=== PATIENT | female | born 2000 | race Caucasian/White ===

== ENCOUNTER 2018-07-19 10:59 | Outpatient (CLI) | payer MEDICAID ==
[~2018-07-19] VITALS: Ht 157.5 cm; Wt 73.0 kg
[2018-07-19] MEDS ORDERED: PREN1TAB13 PO (11:09)
[2018-07-19 11:10] VITALS: Ht 157.5 cm; Wt 73.0 kg
[2018-07-19 11:19] VITALS: BP 123/79; PULSE 83; RESP 20
--- NOTE | 2018-07-19 16:52 | PN ---
Triage Information Date/Time 07/19/1801/29/1645 Reason for visit: Vag spotting / bleeding Weeks of Gestation 38w5d /Para Diabetes: none Hypertention: none Objective Vital Signs Date Temp Pulse Resp B/P (MAP) Pulse Ox O2 O2 Flow FiO2 Time Delivery Rate 07/19/18 98.7 83 20 123/79 Room Air 11:19 (94) Heart Rate: 140's Heart Rate Comments CAT I Contractions: None Exam / Results/Medications Imaging Results BPP 12/18 DENNISE 13.7 EFW 2885 gm 12.5% Disposition: Discharge Assessment/Plan A IUP 38w5d NIL latent phase P RTH in 3days for f/u RTH prn with routine labor instructions HEYDI JOHNSON MD Jul 19, 2018 16:52
== END 2018-07-19 13:50 | disposition home or self-care (01) ==
LOC: OBT 10:59 → L-D 10:59 → OBT 13:50
PROVIDERS: ATTEND Obstetrics & Gynecology
DX: O46.8X3 Other antepartum hemorrhage, third trimester (principal); Z3A.38 38 weeks gestation of pregnancy
CPT/HCPCS: 76815; 76818; Z7500; G0463

== ENCOUNTER 2018-07-20 06:37 | Inpatient (IN) | payer MEDICAID ==
[~2018-07-20] VITALS: Ht 154.9 cm; Wt 72.0 kg
[~2018-07-20 06:37] MED LIST: PREN1TAB13 PO
[2018-07-20 07:02] VITALS: Ht 154.9 cm; Wt 72.0 kg
[2018-07-20 07:03] VITALS: BP 125/82; PULSE 79
--- NOTE | 2018-07-20 07:26 | TRIAGE ---
OB Triage Datetime Report Generated by CPN: 07/20/2018 07:25 Datetime: 07/20/2018 06:54 Stage of : OB Triage Vaginal Exam Dilatation (cms): 4.0 Effacement (%): 70 Station: -2 Exam By: Jodie Cartagena RN Vaginal Bleeding: Normal Show Cervix, Consistency: Soft Cervix, Position: Anterior Presentation 'A': Cephalic Datetime: 07/20/2018 06:51 Assessment Type: Triage Maternal Assessment Level of Consciousness: Fully Conscious DTR's/Clonus: DTRs 2+; No Clonus Headache: Denies Blurred Vision: No Respiratory Effort: Unlabored; Regular Rhythm; Equal Expansion Breath Sounds, Left: Clear and Equal Breath Sounds, Right: Clear and Equal Nausea/Vomiting: Denies RUQ Epigastric Pain: Denies Lower Extremities Edema: None Degree: None Upper Extremities Edema: None Degree: None Facial Edema: None Fall Risk Assessment History of Falling: (0) No Secondary Diagnosis: (0) No Ambulatory Aid: (0) Bedrest/Nurse Assist IV Therapy: (0) No Gait: (0) Normal/Bedrest/Immobile Mental Status: (0) Oriented to Own Ability Fall Score: 0 Fall Risk Score Definition: No Risk: No action required Datetime: 07/20/2018 06:42 Time of Arrival: 07/20/2018 06:30 EGA: 38.6 Arrived By: Wheelchair Arrived From: Home Chief Complaint: UC's Movement: Present Contractions: Regular Time Contractions Began: 07/20/2018 03:00 Contractions: Q3mins Rupture of Membranes: Denies Vaginal Discharge: Denies Recent Sexual Intercouse: Denies Abdominal Trauma: Not Applicable Time Provider Notified: 07/20/2018 07:10 Provider Notified: Dr Christine Initial Plan: Monitor, SVE Datetime: 07/19/2018 11:15 Maternal Assessment Level of Consciousness: Fully Conscious DTR's/Clonus: DTRs 2+ Headache: Denies Blurred Vision: No Nausea/Vomiting: Denies RUQ Epigastric Pain: Denies Facial Edema: None Labor Evaluation Frequency: 5 at home Pattern: Normal: <= 5 Contractions in 10 Minutes Resting Tone [place]: Relaxed Heart Rate FHR Baseline Rate: 150 Monitor Mode: External US FHR Baseline Changes: No Baseline Change Variability: Moderate 6-25 bpm Accelerations: 10X10 Decelerations: None Category: Category I Pain Assessment Pain Scale: 5 Pain Presence: Intermittent Pain Type: Contraction Pain Location: Abdomen Pain Goal: 5 Vaginal Exam Dilatation (cms): 1.0 Effacement (%): 40 Station: -2 Exam By: becca weiss Membrane Status: Intact Vaginal Bleeding: Normal Show Cervix, Consistency: Firm Cervix, Position: Anterior Datetime: 07/19/2018 11:04 Time of Arrival: 07/19/2018 11:00 EGA: 38.5 Arrived By: Ambulatory Arrived From: Home Chief Complaint: VAG SPOTTING SINCE THIS MORNING Movement: Present Contractions: Regular Time Contractions Began: 07/19/2018 08:00 Contractions: 5 AT HOME Rupture of Membranes: Denies Vaginal Bleeding: Normal Show Vaginal Discharge: Denies Recent Sexual Intercouse: Denies Abdominal Trauma: Not Applicable Patient Complaints: Contractions Provider Notified: HADADIAN Initial Plan: EFM,CALL HADANDI Datetime: 07/19/2018 11:03 Maternal Assessment Level of Consciousness: Fully Conscious DTR's/Clonus: DTRs 2+; No Clonus Headache: Denies Blurred Vision: No Respiratory Effort: Unlabored; Regular Rhythm; Equal Expansion Breath Sounds, Left: Clear and Equal Breath Sounds, Right: Clear and Equal Nausea/Vomiting: Denies RUQ Epigastric Pain: Denies Facial Edema: None Temperature Route: Axillary Fall Risk Assessment History of Falling: (0) No Secondary Diagnosis: (0) No Ambulatory Aid: (0) Bedrest/Nurse Assist IV Therapy: (0) No Gait: (0) Normal/Bedrest/Immobile Mental Status: (0) Oriented to Own Ability Fall Score: 0 Fall Risk Score Definition: No Risk: No action required
[2018-07-20] MEDS ORDERED: OXYTOCIN 30 UNITS/LR 500 ML IV SCH ×2 (07:30)
[2018-07-20] MEDS ORDERED: AMPICILLIN 2 GM/NS (PMX) 100 ML IV ONE (07:30)
[2018-07-20] MEDS ORDERED: BUTORPHANOL 2 MG INJ IV PRN (07:30)
[2018-07-20] MEDS ORDERED: MISOPROSTOL 200 MCG TAB PR PRN ×2 (07:30→13:30)
[2018-07-20] MEDS ORDERED: OXYTOCIN 30 UNITS/LR 500 ML IV PRN ×2 (07:30→13:30)
[2018-07-20] MEDS ORDERED: OXYCODONE/ACETAMINOPHEN (5/325) TAB PO PRN (07:30)
[2018-07-20] MEDS ORDERED: LIDOCAINE 1% (MPF) 30 ML INJ INJ PRN (07:30)
[2018-07-20] MEDS ORDERED: IBUPROFEN 600 MG TAB PO PRN (07:30)
[2018-07-20] MEDS ORDERED: METHYLERGONOVINE 0.2 MG INJ IM PRN ×2 (07:30→13:30)
[2018-07-20] MEDS ORDERED: CARBOPROST 250 MCG INJ IM PRN ×2 (07:30→13:30)
[2018-07-20] MEDS ORDERED: LACTATED RINGER'S 1,000 ML IV SCH (08:08)
[2018-07-20] MEDS ORDERED: CEFAZOLIN 2 GM/50 ML (PMX) 50 ML IVPB ONE (11:00)
[2018-07-20] MEDS ORDERED: MAGNESIUM HYDROXIDE 30ML CUP PO ONE (11:02)
[2018-07-20] MEDS ORDERED: HYDROCODONE/APAP (5/325) TAB PO ONE (11:12)
[2018-07-20] MEDS ORDERED: AMPICILLIN 1 GM/NS (PMX) 50 ML IV SCH (11:30)
--- NOTE | 2018-07-20 11:56 | HP ---
Date/Time of Note Date/Time of Note DATE: 07/20/18 TIME: 11:54 OB - History Hx of Present Free Text/Dictation 17 years old 1 with single intrauterine at 38 weeks and 6 days with a TIFFANY of 07/28/2018 complaining of uterine contractions. She states good movement. She denies nausea, vomiting, shortness of breath, chest pain, headache, visual changes, vaginal bleeding or LOF. Chief Complaint: Uterine contractions Estimated Due Date: Jul 28, 2018 : 1 Care: Good Care Ultrasounds: Normal mid trimester US Obstetrical Complications: None Medical Complications: None Past Family/Social History * Past Medical, Surgical, Family and Obstetric Histories reviewed which are unremarkable Blood Type: O+ GBS Status: Negative OB Admission Exam Vital Signs Vital Signs Vital Signs Date Temp Pulse Resp B/P (MAP) Pulse Ox O2 O2 Flow FiO2 Time Delivery Rate 07/20/18 97.9 79 125/82 Room Air 07:03 (96) Physical Exam HEENT: WNL Heart: Rhythm Normal Lungs: Clear Abdomen: WNL Extremities: Normal Cervical Dilatation: 4cm Effacement: 75% Station: -2 Membranes: Intact Heart Rate: 140's Accelerations: Accelerations Present Decelerations: No Decelerations Varibility: Moderate Contractions on Admission: < 5 Minutes Apart Intensity: Firm Last 72 hours Lab Results CBC & BMP 07/20/18 07:50 OB Assessment/Plan Other plan: 17 years old 1 with single intrauterine at 38 weeks and 6 days in active labor - FHR: No sign of metabolic acidosis- Category I - Continuous EFM, toco - CBC, blood type and screen - Analgesia options with R/B/A discussed in detail with patient - Epidural per patient request - Please see the orders - O+ - GBS: Negative - Obtain records Admission, procedures, expectations, risks and possible complications have been discussed in detail with the patient. Risk of vaginal delivery including but not limited to bleeding, infection, cervical laceration, placental retention, injury to fetus, blood transfusion, blood transfusion related infection, risk of anesthesia, adhesion, cervical laceration, episiotomy/laceration, possible delivery with risk of bleeding, infection, injury to other organs (bowel, bladder, ureter, vessels, nerves), injury to fetus, blood transfusion, blood transfusion related infection, risk of anesthesia, scar and hernia formation, needs for future , removal of uterus or any other indicated surgery discussed with the patient. She expressed understanding and repeats the risks. All of her questions were answered. She signed the informed consent. PHYSICIAN'S VERIFICATION OF INFORMED CONSENT The patient and her family counseled regarding the procedure, its indications, risks, potential complications and alternatives and any questions were answered. Consent was obtained. PLANNED PROCEDURE/TREATMENT: Vaginal delivery, episiotomy, repair of laceration possible delivery SANGITA HAYNES Jul 20, 2018 11:56
--- NOTE | 2018-07-20 11:59 | LDN ---
Date/Time of Note Date/Time of Note DATE: 07/20/18 TIME: 11:57 Delivery Summary 17 years old 1 with single intrauterine at 38 weeks and 6 days delivered a viable female over median episiotomy and left lateral vaginal wall laceration. Nose and mouth suctioned. Rest of body delivered. Cord clamped and cut after stopping pulsation. Placenta delivered spontaneously and intact with three-vessel cord. Laceration repaired with 2-0 and 3-0 Vicryl. Time of delivery 10:15 Weight 6 pounds 6 ounces 9 at 1 minutes and 9 at 5 minutes EBL 250 mL Weeks of Gestation 38 weeks and 6 days Placenta Delivered: Spontaneously Meconium: none Episiotomy: Yes (Median episiotomy) Indication for episiotomy Facilitate vaginal delivery Anesthesia type: Local Estimated blood loss: 250 Sponge & Needle done & correct: Yes All needle counts correct: Yes Any foreign bodies felt in the: No Delivery Information Sex Sex: female Apgars 1 Minute: 9 5 Minute: 9 10 Minute: 10 Suctioning Nose & mouth suctioned at lara: Yes Umbilical Cord Umbilical cord with: 3 Vessels Cord presentations: no nuchal cord Cord Blood was obtained: Yes Mother & Baby Disposition Disposition Mom & Baby to Maternity; Good: Yes SANGITA HAYNES Jul 20, 2018 11:59
[2018-07-20] MEDS ORDERED: MAGNESIUM HYDROXIDE 30ML CUP PO PRN (12:00)
[2018-07-20] MEDS: DEXTROSE 5%-LR 1,000 ML IV SCH (13:16)
[2018-07-20] MEDS ORDERED: LANOLIN HPA 1 PKT TOP PRN (13:30)
[2018-07-20] MEDS ORDERED: ONDANSETRON 4 MG INJ IV PRN (13:30)
[2018-07-20] MEDS ORDERED: ACETAMINOPHEN 325 MG TAB PO PRN (13:30)
[2018-07-20] MEDS ORDERED: DIPHENHYDRAMINE 50 MG INJ IV PRN (13:30)
[2018-07-20] MEDS ORDERED: ZOLPIDEM 5 MG TAB PO PRN (13:30)
[2018-07-20] MEDS ORDERED: BENZOCAINE 20% 56 ML SPRAY TOP PRN (13:30)
[2018-07-20] MEDS ORDERED: DIBUCAINE 1% 30 GM OINT TOP PRN (13:30)
[2018-07-20] MEDS ORDERED: OXYCODONE/ASPIRIN (4.88/325) TAB PO PRN (13:30)
[2018-07-20] MEDS ORDERED: WITCH HAZEL/GLYCERIN PAD PR PRN (13:30)
[2018-07-20 13:40] VITALS: BP 123/77; PULSE 78; RESP 20
[2018-07-20 15:24] VITALS: BP 124/76; PULSE 86; RESP 19
[2018-07-20] MEDS: LACTATED RINGER'S 1,000 ML IV* SCH (16:20)
[2018-07-20] MEDS: IBUPROFEN 600 MG TAB PO SCH ×2 (18:12→23:48)
[2018-07-20 19:45] VITALS: BP 118/57; PULSE 95; RESP 18
[2018-07-20] MEDS: SENNA/DOCUSATE NA (8.6MG/50MG) TAB PO PRN (21:27)
[2018-07-21] VITALS: BP 110/52; PULSE 82; RESP 18
[2018-07-21 04:06] VITALS: BP 104/57; PULSE 86; RESP 18
[2018-07-21] MEDS: IBUPROFEN 600 MG TAB PO SCH ×3 (05:53→18:17)
[2018-07-21] MEDS: LACTATED RINGER'S 1,000 ML IV* SCH (07:00)
[2018-07-21] MEDS: DEXTROSE 5%-LR 1,000 ML IV SCH (07:00)
[2018-07-21 08:30] VITALS: BP 99/54; PULSE 100; RESP 18
[2018-07-21] MEDS: SENNA/DOCUSATE NA (8.6MG/50MG) TAB PO PRN ×2 (15:53→21:29)
[2018-07-21 16:24] VITALS: BP 119/74; PULSE 97; RESP 18
[2018-07-21 20:00] VITALS: BP 115/75; PULSE 88; RESP 20
--- NOTE | 2018-07-21 23:02 | PN ---
Date/Time of Note Date/Time of Note DATE: 07/21/18 TIME: 23:01 OB Subjective Subjective Subjective PPD# 1 Patient is doing well. She denies nausea, vomiting, shortness of breath, chest pain, headache. She has been ambulating without difficulty, tolerating regular diet. Pain is well controlled on current medications OB Objective Objective Objective Vital Signs Date Temp Pulse Resp B/P (MAP) Pulse Ox O2 O2 Flow FiO2 Time Delivery Rate 07/21/18 98.1 88 20 115/75 Room Air 20:00 (88) General: AAO X 3, comfortable, NAD, appropriate mood and affect. ABD: +BS. Soft, non-tender. Uterus 2 cm below umbilicus Flank: No CVA tenderness (B/L) LE: Mild edema. No clubbing, cyanosis, thigh or calf tenderness (B/L). Homans 'sign is negative Laboratory Tests Test 07/20/18 06:45 07/20/18 07:50 07/21/18 08:53 Urine Opiates Screen Negative Urine Barbiturates Negative Urine Amphetamines Screen Negative Urine Benzodiazepines Screen Negative Urine Cocaine Screen Negative Urine Cannabinoids Negative White Blood Count 15.6 10^3/ul 12.8 10^3/ul Red Blood Count 4.44 10^6/ul 3.47 10^6/ul Hemoglobin 12.8 g/dl 10.2 g/dl Hematocrit 39.3 % 31.6 % Mean Corpuscular Volume 88.5 fl 91.1 fl Mean Corpuscular Hemoglobin 28.8 pg 29.4 pg Mean Corpuscular 32.6 g/dl 32.3 g/dl Hemoglobin Concent Red Cell Distribution Width 13.6 % 14.1 % Platelet Count 216 10^3/UL 177 10^3/UL Mean Platelet Volume 11.8 fl 11.4 fl Immature Granulocytes % 0.700 % 0.500 % Neutrophils % 80.2 % 67.6 % Lymphocytes % 14.9 % 26.8 % Monocytes % 3.8 % 4.5 % Eosinophils % 0.1 % 0.2 % Basophils % 0.3 % 0.4 % Nucleated Red Blood Cells % 0.0 /100WBC 0.0 /100WBC Immature Granulocytes # 0.110 10^3/ul 0.070 10^3/ul Neutrophils # 12.5 10^3/ul 8.6 10^3/ul Lymphocytes # 2.3 10^3/ul 3.4 10^3/ul Monocytes # 0.6 10^3/ul 0.6 10^3/ul Eosinophils # 0.0 10^3/ul 0.0 10^3/ul Basophils # 0.1 10^3/ul 0.1 10^3/ul Nucleated Red Blood Cells # 0.0 10^3/ul 0.0 10^3/ul Prothrombin Time 11.5 Sec Prothrombin Time Ratio 0.9 INR International 0.83 Normalized Ratio Activated Partial Thromboplast 26.2 Sec Time Rapid Plasma Reagin NONREACTIVE Hepatitis B Surface Antigen NEGATIVE OB Assessment/Plan Other plan: 17 years old 1 para 1001 s/p normal vaginal delivery at 38 weeks and 6 days. PPD#1 - AF, VSS - Baby is doing well, at bed side. She is bonding well - Contraception methods with R/B/A/FR discussed - Continue care - Discharge home tomorrow - Rx and instruction given - Follow up in 2 and 6 weeks at clinic SANGITA HAYNES Jul 21, 2018 23:02
[2018-07-22] MEDS: IBUPROFEN 600 MG TAB PO SCH ×3 (00:05→12:13)
--- NOTE | 2018-07-22 00:21 | DS ---
Date/Time of Note Date/Time of Note DATE: 07/22/18 TIME: 00:21 Obstetrical Discharge Record Final Diagnosis Final Diagnosis: Term delivered Other Final Diagnosis 17 years old 1 para 1001 s/p normal vaginal delivery at 38 weeks and 6 days. PPD#2. Her course was unremarkable. She is ambulating and tolerating regular diet. She is voiding without difficulty. Pain is controlled on current medication. - AF, VSS - Baby is doing well, at bed side. She is bonding well - Contraception methods with R/B/A/FR discussed - Continue care - Discharge home - Rx and instruction given - Follow up in 2 and 6 weeks at clinic Vaginal Delivery Obstetrical Delivery: Spontaneous Condition on Discharge Physical Assessment Last Vitals: Vital Signs Date Temp Pulse Resp B/P (MAP) Pulse Ox O2 O2 Flow FiO2 Time Delivery Rate 07/21/18 98.1 88 20 115/75 Room Air 20:00 (88) Voiding: Yes Bowel Movement: Yes Breast: Soft, non-tender Fundus: Firm Calf Tenderness: No Patient Condition: Stable SANGITA HAYNES Jul 22, 2018 00:21
[2018-07-22 04:00] VITALS: BP 107/63; PULSE 73; RESP 20
[2018-07-22 07:45] VITALS: BP 113/58; PULSE 83; RESP 17
[2018-07-22] MEDS ORDERED: MEASLES,MUMPS,RUBELLA VACCINE INJ SC* ONE (09:00)
[2018-07-22] MEDS ORDERED: DIPHTH/TET/ACEL PERTUSS (ADULT) 0.5 ML VIAL IM* ONE (09:00)
[2018-07-22] MEDS: SENNA/DOCUSATE NA (8.6MG/50MG) TAB PO PRN (09:47)
--- NOTE | 2018-07-22 15:36 | QN ---
Documentation Comment PPD#2 is table afebrile tolerates diet No VB +BM Voids No sign of Depression VS stable Gen NAD Abd soft NT ND Genitalia No blood at perineum --->Discharge with precautions KIMBERLY NIELSEN M.D. Jul 22, 2018 15:36
== END 2018-07-22 13:00 | disposition home or self-care (01) | DRG 807 ==
LOC: OBT 06:37 → L-D 06:38 → OBT 07:10 → PP1 14:01
PROVIDERS: ADMIT Obstetrics & Gynecology; ATTEND Obstetrics & Gynecology
PROC: 10E0XZZ Delivery of Products of Conception, External Approach (ICD-10-PCS; principal; 2018-07-20)
PROC: 0KQM0ZZ Repair Perineum Muscle, Open Approach (ICD-10-PCS; 2018-07-20)
PROC: 0W8NXZZ Division of Female Perineum, External Approach (ICD-10-PCS; 2018-07-20)
DX: O71.4 Obstetric high vaginal laceration alone (principal); Z37.0 Single live birth; Z3A.38 38 weeks gestation of pregnancy; Z23 Encounter for immunization
CPT/HCPCS: 80307; 85025; 85610; 85730; 86592; 86762; 86850; 86900; 86901; 87340; 90715; G0463; J0290; J0595; J0690; J2590; J7120; J7121